=== PATIENT | female | born 1970 | race Caucasian/White ===

== ENCOUNTER 2019-07-02 10:05 | Outpatient (CLI) | payer OTHER, SELFPAY ==
[2019-07-02 10:38] LABS: Basophils Absolute Auto 0.1 K/mm3 (0.0-0.1); Basophils Percent Auto 0.7 % (0.2-1.2); Eosinophils Absolute Auto 0.1 K/mm3 (0-0.3); Eosinophils Percent Auto 1.4 % (0-4.4); Hematocrit 40.6 % (37.0-47.0); Hemoglobin 14.2 g/dL (12.0-15.0); Immature Granulocyte Absolute 0.03 K/mm3 (0.00-0.031); Immature Granulocyte Percent A 0.4 % (0-0.5); Lymphocytes Absolute Auto 2.01 K/mm3 (0.9-3.2); Lymphocytes Percent Auto 23.9 % (18.3-44.2); Mean Corpuscular Hemoglobin 33.3 pg (26-34); Mean Corpuscular Volume 95.3 fl (80-100); Mean Platelet Volume 8.3 fl (7.4-10.4); Monocytes Absolute Auto 0.5 K/mm3 (0.1-0.6); Monocytes Percent Auto 5.8 % (2.6-8.5); Neutrophils Absolute Auto 5.7 K/mm3 (1.3-6.7); Neutrophils Percent Auto 67.8 % (45.5-73.1); Platelet Count Result 270 k/mm3 (150-375); Red Blood Count 4.26 M/mm3 (4.2-5.4); Red Cell Distribution Width 12.4 % (11.5-14.5); White Blood Count 8.4 K/mm3 (4.5-10.0)
[2019-07-02 10:41] LABS: Alanine Aminotransferase 18 U/L (4-35); Albumin Level 4.3 g/dL (3.5-5.1); Alkaline Phosphatase 50 U/L (38-126); Aspartate Amino Transferase 27 U/L (14-36); Bilirubin,Total 0.5 mg/dL (0.2-1.3); Blood Urea Nitrogen 16 mg/dL (7-17); Calcium 8.5 mg/dL (8.4-10.2); Carbon Dioxide 25 mmol/L (22-30); Chloride 105 mmol/L (98-107); Cholesterol 214 mg/dL (0-200); Estimated Glomerular Filt Rate > 60; Glucose 84 mg/dL (65-105); HDL Direct 75 mg/dL; Sodium 134 mmol/L (137-145); Triglycerides 79 mg/dL (<150)
[2019-07-02 10:51] LABS: LDL Cholesterol Direct 110 mg/dL
== END 2019-07-02 10:06 | disposition home or self-care (01) ==
PROVIDERS: PCP Internal Medicine; Visit Provider Nurse Practitioner
DX: Z13.220 Encounter for screening for lipoid disorders (principal); Z13.29 Encounter for screening for other suspected endocrine disorder; F41.9 Anxiety disorder, unspecified
CPT/HCPCS: 36415; 80053; 80061; 84443; 85025

== ENCOUNTER 2019-10-25 08:00 | Outpatient (RCR) | payer OTHER, SELFPAY ==
--- NOTE | 2019-08-23 15:49 | PTOPEVAL ---
PHYSICAL THERAPY EVALUATION AND PLAN OF CARE 08-23-2019 The PT evaluation was completed for the diagnosis of cervical radiculopathy. Her plan of care is scheduled for 1-2 x/week for 5 weeks. Thank you for referring Yahaira Blackburn to [facility]. Please review, sign, date and return this plan of care DARNELL. I agree with and certify that the following plan of care is medically necessary. Referring Physician Date Attending Provider: Denisha Haines NP *PT Outpatient Evaluation Start: 08/23/19 14:39 Document 08/23/19 14:30 JOSE LUIS (Rec: 08/23/19 15:49 JOSE LUIS [id number]) Outpatient Past Medical History Past Medical History Source of Past Medical History Patient Neurological History Hx Other Neurological Disorders Yes: vertigo with positional changes:supine/sit Cardiovascular History Hx Cardiac Disorders No Significant History Respiratory History Hx Other Respiratory Disorders Yes: smoker Gastrointestinal History Hx Gastrointestinal Disorders No Significant History Genitourinary History Hx Genitourinary Disorders No Significant History Musculoskeletal History Hx Other Musculoskeletal Disorders Yes: neck pain; shoulder blade pain- chiropractor care Hematological History Hx Hematological Disorders No Significant History Endocrine History Hx Endocrine Disorders No Significant History HEENT History Hx Other HEENT Disorders Yes: wear glasses- all time, except at computer work Psychosocial History Hx Anxiety Yes: taking meds Evaluation Information Problem Diagnosis cervical pain with radiculopathy Onset Apr 20 2019 Subjective Information gradual increase in pain neck Query Text:As Reported By Patient/ and L UE; saw chiropractor for Family L shoulder blade pain; arm going numb with sleeping- in prone with arm out to the side ; when changed sleep position , less; started doing more fitness exercises, taking it slow and gradual increase in exercises. 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
--- NOTE | 2019-09-26 08:45 | PTOPEVAL ---
PHYSICAL THERAPY RE-EVALUATION AND UPDATED PLAN OF CARE 09-26-2019 Ms. Blackburn has received 6 PT sessions, from August 22 to today, for the diagnosis of cervical radiculopathy. Compared to the initial evaluation: she has improved with: less pain rating at the high rating; sleep tolerance; strength of shoulder-scapular complex; cervical rotation to the L no longer causes pain; posture and awareness of positioning; She continues to have muscle spasms, pain and radicular symptoms into her L fingers with cervical extension and increased activity. Yahaira is independent with her home exercise program and is observing good posture with her exercises. Continued therapy 1x/week for 4 weeks, to advance HEP and progress her treatments, to decrease pain and increase strength. Thank you for referring Yahaira Blackburn to [facility]Note 3]. Please review, sign, date and return this plan of care DARNELL. I agree with and certify that the following plan of care is medically necessary. 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 Pain Assessment Timing of Pain Assessment Timing of Pain Assessment Assessment Pain Scale Pain Scale Used Numeric (1 - 10) Self Report Pain Assessment Bilateral Neck Reported Pain Level 0 Radicular Pain Location tingling in index and 3rd finger~20x/day;no neck pain now;mild pain in neck Pain Frequency Intermittent Other Pain Description uncomfortable in arm, no longer as much pain Lowest Pain Intensity 0 Greatest Pain Intensity 4 Other Pain Aggravating Factors position, positional vertigo; sinus issues now;awaken from sleep 1x/night Pain Relief Interventions Used By Inactivity/Rest Patient Other Alleviating Interventions good upright sitting posture; change position; shoulder circles Additional Pain Comments Electrical stim & heat end session, sitting x 15 min; leukotape applied Pain Score Pain Score 0: Self Report Cervical and Lumbar ROM Cervical ROM Cervical ROM Comments
--- NOTE | 2019-10-25 08:39 | PTOPEVAL ---
PHYSICAL THERAPY DISCHARGE 10-25-2019 Ms. Blackburn has received 10 PT sessions, from August 22 to today, for the diagnosis of cervical radiculopathy. 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 Yahaira is independent with her home exercises and has a good awareness of her posture and positioning with exercises and at the work computer. The goals were partially achieved: did not achieve commission clerk strength, radicular pain into L forearm at worst and 5# use for shoulder exercise goals; but did improve with all of them. She will be discharged from PT at this time. She will continue with her Home Exercises and monitor her radicular pain. Thank you for referring Yahaira Blackburn to [facility]. Please review, sign, date and return this discharge DARNELL. I agree with and certify that the following plan of care is medically necessary. Referring Physician Date Attending Provider: Denisha Haines NP *PT Outpatient Re- Evaluation Document 10/25/19 08:10 JOSE LUIS (Rec: 10/25/19 08:39 JOSE LUIS [id number]) Subjective: Yahaira reports: feeling much better, able to work out with video, modify activities to not cause arm pain, able to sleep without awaken due to pain; cannot lie on side very long; feels like she is ready for discharge from PT, to continue home exercises and get an exercise ball. Pain Assessment Timing of Pain Assessment Timing of Pain Assessment Assessment Pain Scale Pain Scale Used Numeric (1 - 10) Self Report Pain Assessment Bilateral Neck Reported Pain Level 0 Radicular Pain Location numb L arm 3x during day, for less than 1 minute duration- 3 -4-5 L fingers Pain Frequency Chronic Lowest Pain Intensity 0 Greatest Pain Intensity 1 Other Pain Aggravating Factors sit at computer Other Alleviating Interventions no pain meds; Additional Pain Comments arms feel weak; tired most of the time; was able to worked out few times l Pain Score Pain Score 0: Self Report Additional Pain Score Comments electrical stim and heat at end of session, 15 min in supine, decrease muscle spasms over upper traps; discussed home TENS unit for pain c
== END 2019-11-01 13:45 | disposition home or self-care (01) ==
LOC: ANHPT 08:00
PROVIDERS: PCP Internal Medicine; Visit Provider Nurse Practitioner
DX: M54.12 Radiculopathy, cervical region (principal)
CPT/HCPCS: 97012; 97014; 97110; 97140; 97161; G0283

== ENCOUNTER 2021-03-22 07:30 | Outpatient (CLI) | payer OTHER, SELFPAY ==
[2021-03-22 08:12] LABS: Basophils Absolute Auto 0.1 K/mm3 (0.0-0.1); Basophils Percent Auto 0.8 % (0.2-1.2); Eosinophils Absolute Auto 0.2 K/mm3 (0-0.3); Hematocrit 41.8 % (37.0-47.0); Hemoglobin 14.6 g/dL (12.0-15.0); Immature Granulocyte Absolute 0.04 K/mm3 (0.00-0.031); Immature Granulocyte Percent A 0.5 % (0-0.5); Lymphocytes Absolute Auto 1.78 K/mm3 (0.9-3.2); Lymphocytes Percent Auto 20.5 % (18.3-44.2); Mean Corpuscular HGB Conc 34.9 g/dl (32-36); Mean Corpuscular Hemoglobin 34.3 pg (26-34); Mean Corpuscular Volume 98.1 fl (80-100); Mean Platelet Volume 8.5 fl (7.4-10.4); Monocytes Absolute Auto 0.5 K/mm3 (0.1-0.6); Neutrophils Absolute Auto 6.1 K/mm3 (1.3-6.7); Neutrophils Percent Auto 70.2 % (45.5-73.1); Platelet Count Result 229 k/mm3 (150-375); Red Blood Count 4.26 M/mm3 (4.2-5.4); Red Cell Distribution Width 12.2 % (11.5-14.5); White Blood Count 8.7 K/mm3 (4.5-10.0)
[2021-03-22 08:37] LABS: Alanine Aminotransferase 16 U/L (4-35); Albumin Level 4.2 g/dL (3.5-5.1); Alkaline Phosphatase 50 U/L (38-126); Anion Gap 4 mmol/L (8-16); Aspartate Amino Transferase 23 U/L (14-36); Bilirubin,Total 0.3 mg/dL (0.2-1.3); Blood Urea Nitrogen 14 mg/dL (7-17); Calcium 8.7 mg/dL (8.4-10.2); Carbon Dioxide 23 mmol/L (22-30); Chloride 107 mmol/L (98-107); Cholesterol 209 mg/dL (0-200); Estimated Glomerular Filt Rate > 60; Glucose 100 mg/dL (65-110); HDL Direct 85 mg/dL; Potassium 4.1 mmol/L (3.4-5.0); Sodium 134 mmol/L (137-145); Triglycerides 94 mg/dL (<150)
[2021-03-22 08:48] LABS: LDL Cholesterol Direct 99 mg/dL
== END 2021-03-22 07:31 | disposition home or self-care (01) ==
PROVIDERS: PCP Internal Medicine; Visit Provider Nurse Practitioner
DX: Z13.228 Encounter for screening for other metabolic disorders (principal); Z13.220 Encounter for screening for lipoid disorders
CPT/HCPCS: 36415; 80053; 80061; 85025

== ENCOUNTER 2021-05-25 00:23 | Emergency (ER) | payer OTHER, SELFPAY ==
--- NOTE | ~2021-05-25 | XR_ITS ---
XR ankle LT min 3V 05/25/2021 01:33 Indication: Left ankle pain Procedure: 4 views left ankle Comparison: No prior studies for comparison. Findings: There is a nondisplaced oblique distal fibular diametaphyseal fracture. No significant angu lation. Ankle mortise intact. Mild lateral soft tissue swelling. No foreign bodies. Talar dome is nor mal. Impression: 1: Nondisplaced oblique distal fibular diametaphyseal fracture. Reviewed, dictated and finalized at location A. 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
[2021-05-25 00:27] VITALS: PULSE 78; RESP 16; TEMP 36.8; O2SAT 98
--- NOTE | 2021-05-25 01:21 | ED.GENADULT ---
HPI - General Adult General Chief complaint: Extremity Injury, Lower Stated complaint: FALL, ANKLE INJURY Time Seen by Provider: 05/25/21 00:40 Source: patient and EMS History of Present Illness HPI narrative: 51-year-old female presenting to the emergency department for evaluation of left ankle pain after having a ground-level fall at home. Patient does admit to drinking alcohol. Patient states she was walking out to her car to get up with her cigarettes when she rolled her ankle. Patient does report left ankle pain that is worse with ambulation. Patient denies striking head denies any loss of consciousness. Related Data Home Medications Medication Instructions Recorded Confirmed levonorgestrel 20 mcg/24 hours (7 1 device I-UTERINE ONCE 03/14/19 03/28/21 yrs) 52 mg intrauterine device Allergies Allergy/AdvReac Type Severity Reaction Status Date / Time No Known Allergies Allergy Verified 02/23/20 08:41 Review of Systems Review of Systems: CONSTITUTIONAL: Denies fever, chills, or sweats. EYES: Denies visual changes, redness, or discharge. ENT: Denies rhinorrhea, congestion, sore throat, or otalgia. CARDIOVASCULAR: Denies chest pain, palpitations, or edema. RESPIRATORY: Denies cough or dyspnea. GASTROINTESTINAL: Denies abdominal pain, nausea, vomiting, or diarrhea. GENITOURINARY: Denies dysuria or hematuria. SKIN: Denies rash or itching. MUSCULOSKELETAL: Left ankle pain NEUROLOGIC: Denies headache, numbness, or weakness. PSYCHIATRIC: Denies anxiety or depression. All systems reviewed & are unremarkable except as noted in HPI and below PMFSH Past Medical History Medical History (Updated 05/25/21 @ 01:40 by Kenneth Anaya MD) history History of candidal vulvovaginitis Tobacco use Vertigo Surgical History Surgical History History of conization of cervix Family History Family History Mother Breast cancer Social History Social History Smoking packs per day: 1 Smoking cigarettes per day: 20.0 Smoking status: Current every day smoker Alcohol intake: current Alcohol use details: once a week Exam Narrative: APPEARANCE: Well appearing, no pain, no distress, well-nourished. HEAD: normocephalic, atraumatic. RESPIRATORY: Airway patent, respirations nonlabored. Clear to auscultation bilaterally, no rales, rhonchi, wheezing. CARDIOVASCULAR: Regular rate and rhythm without murmurs rubs or gallops. ABDOMINAL: Soft, nontender, nondistended, normal bowel sounds MUSCULOSKELETAL: Tenderness to distal left lower leg. Neurovascular intact. SKIN: Warm, dry. Normal Color Course Course Emergency Course: Patient was updated on the results of her x-ray. Patient was splinted. Patient was updated on importance of close follow-up with orthopedics. All questions and concerns were addressed. Patient was able to ambulate on crutches prior to discharge. Patient was in no distress time of discharge from the restaurant. Vital Signs Vital signs: Vital Signs Temperature 98.3 F 05/25/21 00:27 Pulse Rate 78 05/25/21 00:27 Respiratory Rate 16 05/25/21 00:27 Pulse Oximetry 98 05/25/21 00:27 Temperature 97.9 F 05/25/21 05:34 Pulse Rate 77 05/25/21 05:34 Respiratory Rate 14 05/25/21 05:34 Blood Pressure 124/78 05/25/21 05:34 Pulse Oximetry 100 05/25/21 05:34 Medical Decision Making Vital Signs Vital Signs: Vital Signs Temperature 98.3 F 05/25/21 00:27 Pulse Rate 78 05/25/21 00:27 Respiratory Rate 16 05/25/21 00:27 Pulse Oximetry 98 05/25/21 00:27 Temperature 97.9 F 05/25/21 05:34 Pulse Rate 77 05/25/21 05:34 Respiratory Rate 14 05/25/21 05:34 Blood Pressure 124/78 05/25/21 05:34 Pulse Oximetry 100 05/25/21 05:34 Imaging Data Radiologist's impression: Nadia
--- NOTE | 2021-05-25 02:37 | PC.NURSE ---
Pt yelling, states that she wants to stay in ED longer and sleep, states that she cannot find a ride back home but then states that she will pay a taxi. RN informs pt that she will be discharged after all ED interventions are completed, pt only yells ans states You're so rude, why do you want to kick me out? I want to sleep!
--- NOTE | 2021-05-25 05:33 | PC.NURSE ---
Pt given time to sleep and call to arrange transportation, pt was observed by this RN to use crutches properly, after crutch-training pt called [employer].
[2021-05-25 05:34] VITALS: BP 124/78; PULSE 77; RESP 14; TEMP 36.6; O2SAT 100
--- NOTE | 2021-06-05 14:16 | PC.NURSE ---
LATE ENTRY This note is being entered to document information to the patient's record. The following information was omitted on [05/25/2021], by [Angelita KIRKPATRICK]. Left lower leg short Posterior splint applied.
== END 2021-05-25 05:45 | disposition home or self-care (01) ==
PROVIDERS: Emergency Provider Emergency Medicine; PCP Internal Medicine
DX: S89.392A Other physeal fracture of lower end of left fibula, initial encounter for closed fracture (principal); F17.210 Nicotine dependence, cigarettes, uncomplicated; W18.39XA Other fall on same level, initial encounter; Y93.01 Activity, walking, marching and hiking
CPT/HCPCS: 29515; 73610; 99284

== ENCOUNTER 2021-09-10 15:15 | Outpatient (RCR) | payer OTHER, SELFPAY ==
--- NOTE | 2021-07-16 16:55 | PTOPEVAL ---
PHYSICAL THERAPY INITIAL EVALUATION. Thank you for referring Yahaira Blackburn to [facility].? The patient is scheduled to be seen for therapy? 2x/week for 4 weeks. Please review, sign, date and return this plan of care DARNELL. I agree with and certify that the following plan of care is medically necessary. Referring Physician Date Attending Provider: Davide Kang MD *PT Outpatient Evaluation Start: 07/16/21 Evaluation Information Diagnosis Nondisplaced lateral malleolus fracture Onset 05/24/21 Subjective Information Pt states on 05/24/21 she fell Query Text:As Reported By Patient/ and broke her fibula. She Family states she wore a splint for 2 weeks, after that she wore a brace and used crutches. She states she went back to work about 2 weeks ago. She states she is still battling swelling. She uses a knee scooter at work. She self weened from the crutches over the weekend. She reports she is very fearful of hurting her ankle again. Pain Assessment Left Ankle(s) Reported Pain Level 0 Pain Description Tender on Palpation,Tightness, With Movement Pain Frequency Acute,Intermittent Lowest Pain Intensity 0 Greatest Pain Intensity 5 Pain Aggravating Factors Stair Climbing,Walking,Weight Bearing/Standing Interventions Used Interventions Used By Clinicians Education,Exercise,Rest Pain Relief Interventions Used By Inactivity/Rest Patient Lower Extremity Range of Motion Left Ankle Dorsiflexion With Knee Extension -7 active Ankle Dorsiflexion With Knee Extension 5 passive Ankle Dorsiflexion With Knee Flexed 6 active Ankle Plantarflexion Range of Motion - 70 active Ankle Eversion Range of Motion - Passive 9 passive Ankle Inversion Range of Motion - 20 passive Ankle Range of Motion Comments R ankle 6 deg of dorsiflexion 70 deg of plantarflexion 15 deg of inversion 35 deg of eversion Lower Extremity Muscle Strength Testing Gross Lower Extremity Strength R SLS: 15s L SLS: 12s Left Ankle Dorsiflexion Strength 4- Good - Ankle Plantarflexion Strength 4- Good - Ankle Eversion Strength 4- Good - Ankle Inversion Strength 4- Good - Muscle Length Testing Gastro
--- NOTE | 2021-08-13 13:05 | PTOPEVAL ---
PHYSICAL THERAPY PROGRESS REPORT. Thank you for referring Yahaira Blackburn to [facility].? The patient is scheduled to be seen for therapy? 1x/week for 4 weeks. Please review, sign, date and return this plan of care DARNELL. I agree with and certify that the following plan of care is medically necessary. Referring Physician Date Attending Provider: Davide Kang MD Evaluation Information Diagnosis Nondisplaced lateral malleolus fracture Onset 05/24/21 Subjective Information Pt states overall she is doing Query Text:As Reported By Patient/ good. Pt states she has a Family spot on her posterior heel that makes it feel like her ankle is collapsing , this makes her fearful of falling. She states she still has some aches, pains, and tightness but she is walking much better . Pt states the period of stiffness after inactivity has shorten drastically. Pain Assessment Left Ankle(s) Reported Pain Level 1 Greatest Pain Intensity 5 Lower Extremity Range of Motion Ankle/Foot Range of Motion Left Ankle Dorsiflexion With Knee Extension -2 active Ankle Dorsiflexion With Knee Extension 9 passive Ankle Dorsiflexion With Knee Flexed 12 active Ankle Plantarflexion Range of Motion - 70 active Ankle Eversion Range of Motion - Passive 18 passive Ankle Inversion Range of Motion - 27 passive Ankle Range of Motion Comments R ankle 6 deg of dorsiflexion 70 deg of plantarflexion 15 deg of inversion 35 deg of eversion Lower Extremity Muscle Strength Testing Gross Lower Extremity Strength R SLS: 30s - stopped at 30 sec L SLS: 30s - stopped at 30 sec unable to perform single leg heel raise - able to lower eccentrically on L LE Ankle Strength Left Ankle Dorsiflexion Strength 4 Good Ankle Plantarflexion Strength 4 Good Ankle Eversion Strength 4 Good Ankle Inversion Strength 4 Good Gait Assessment Gait Pattern Antalgic Gait Other Gait Observations No notable deviations in the first min of walk, towards the end of the 2 mins pt stated to demonstrate a mild antalgic gait. Equal step length, stride length, and normal gait speed. 2 Minute Walk
--- NOTE | 2021-09-10 15:48 | PTOPEVAL ---
PHYSICAL THERAPY PROGRESS REPORT AND DISCHARGE SUMMARY. Thank you for referring Yahaira Blackburn to [facility].? The patient is to be d/c'ed from therapy services at this time. Please review, sign, date and return this plan of care DARNELL. I agree with and certify that the following plan of care is medically necessary. Referring Physician Date Attending Provider: Davide Kang MD Evaluation Information Diagnosis Nondisplaced lateral malleolus fracture Onset 05/24/21 Subjective Information Pt states she is doing great. Query Text:As Reported By Patient/ Last week she went on vacation Family and was able to walk on sand barefoot, get on and off a boat, dance, and walk more than usual without limitations , she did have increased soreness over the next couple of days. Pain Assessment Left Ankle(s) Reported Pain Level 1 Lower Extremity Range of Motion Ankle/Foot Range of Motion Left Ankle Dorsiflexion With Knee Extension 8 active Ankle Dorsiflexion With Knee Extension 13 passive Ankle Dorsiflexion With Knee Flexed 12 active Ankle Plantarflexion Range of Motion - 70 active Ankle Eversion Range of Motion - Passive 18 Ankle Inversion Range of Motion -passive 40 Ankle Range of Motion Comments R ankle 6 deg of dorsiflexion 70 deg of plantarflexion 35 deg of inversion 15 deg of eversion Lower Extremity Muscle Strength Testing Gross Lower Extremity Strength R SLS: 30s - stopped at 30 sec L SLS: 30s - stopped at 30 sec Able to perform 8 single leg heel raises on the R before a loss in height was detected, able to perform 2 on the L before loss of height Ankle Strength Left Ankle Dorsiflexion Strength 5 Normal Ankle Plantarflexion Strength 4+ Good + Ankle Eversion Strength 5 Normal Ankle Inversion Strength 4+ Good + Gait Assessment Ambulation Assistive Devices None Other Gait Observations No notable deviations initially, as time elapsed, minor decreased eccentric control on the L. Equal step length, stride length, and normal gait speed. 2 Minute Walk Total Distance Walked (feet) 575 2 Minute Walk Gait Speed Score (feet/ 4.79 second)
== END 2021-09-11 10:20 | disposition home or self-care (01) ==
LOC: ANHPT 15:15
PROVIDERS: PCP Internal Medicine; Visit Provider Orthopaedic Surgery
DX: S82.65XA Nondisplaced fracture of lateral malleolus of left fibula, initial encounter for closed fracture (principal)
CPT/HCPCS: 97022; 97110; 97112; 97140; 97161; 97530

== ENCOUNTER 2022-04-16 09:08 | Outpatient (CLI) | payer OTHER, SELFPAY ==
[2022-04-16 18:28] LABS: Alanine Aminotransferase 41 U/L (6-35); Albumin Level 4.5 g/dL (3.5-5.1); Alkaline Phosphatase 57 U/L (38-126); Anion Gap 6 mmol/L (8-16); Aspartate Amino Transferase 44 U/L (14-36); Bilirubin,Total 0.4 mg/dL (0.2-1.3); Blood Urea Nitrogen 20 mg/dL (7-17); Carbon Dioxide 28 mmol/L (22-30); Chloride 103 mmol/L (98-107); Cholesterol 269 mg/dL (0-200); Estimated Glomerular Filt Rate > 60; Glucose 83 mg/dL (65-110); HDL Direct 79 mg/dL; Potassium 4.5 mmol/L (3.4-5.0); Sodium 137 mmol/L (137-145); Triglycerides 87 mg/dL (<150)
[2022-04-16 18:39] LABS: LDL Cholesterol Direct 136 mg/dL
[2022-04-16 19:39] LABS: Basophils Absolute Auto 0.1 K/mm3 (0.0-0.1); Eosinophils Absolute Auto 0.1 K/mm3 (0-0.3); Eosinophils Percent Auto 1.8 % (0-4.4); Hematocrit 44.1 % (37.0-47.0); Immature Granulocyte Absolute 0.01 K/mm3 (0.00-0.031); Immature Granulocyte Percent A 0.2 % (0-0.5); Lymphocytes Absolute Auto 1.99 K/mm3 (0.9-3.2); Lymphocytes Percent Auto 32.3 % (18.3-44.2); Mean Corpuscular Hemoglobin 33.8 pg (26-34); Mean Corpuscular Volume 99.3 fl (80-100); Mean Platelet Volume 8.9 fl (7.4-10.4); Monocytes Absolute Auto 0.5 K/mm3 (0.1-0.6); Monocytes Percent Auto 7.3 % (2.6-8.5); Neutrophils Absolute Auto 3.6 K/mm3 (1.3-6.7); Neutrophils Percent Auto 57.4 % (45.5-73.1); Platelet Count Result 298 k/mm3 (150-375); Red Blood Count 4.44 M/mm3 (4.2-5.4); Red Cell Distribution Width 13.1 % (11.5-14.5); White Blood Count 6.2 K/mm3 (4.5-10.0)
== END 2022-04-16 09:09 | disposition home or self-care (01) ==
LOC: ANHGOSHLAB 09:09
PROVIDERS: PCP Internal Medicine; Visit Provider Nurse Practitioner
DX: F41.9 Anxiety disorder, unspecified (principal); Z13.220 Encounter for screening for lipoid disorders; Z13.29 Encounter for screening for other suspected endocrine disorder
CPT/HCPCS: 36415; 80053; 80061; 84443; 85025

== ENCOUNTER 2022-04-26 11:03 | Outpatient (CLI) | payer OTHER, SELFPAY ==
--- NOTE | ~2022-04-26 | MM_ITS ---
EXAMINATION: MM screening [place] BI w juana HISTORY: Screening mammogram TECHNIQUE: Craniocaudal and mediolateral oblique 3-D tomosynthesis images were obtained and synthetic 2-D images were generated. CAD analysis was submitted and interpreted. COMPARISON: 08/01/2017, 05/13/2014 bilateral screening mammogram examinations BREAST PARENCHYMAL COMPOSITION: The breasts are heterogeneously dense, which may obscure small masses . FINDINGS: There is no evidence of suspicious mass, calcification, or architectural distortion to sugg est malignancy in either breast. There has been no suspicious interval change. IMPRESSION: 1. No mammographic evidence of malignancy. 2. Recommend routine screening mammography in one year. BI-RADS Category 1: Negative , 05/09/2014 bilateral screening mammogram examinations Reviewed, dictated and finalized at location A. COMMUNICATIONS SUPPORT
== END 2022-04-26 11:04 | disposition home or self-care (01) ==
LOC: ANHIMG 11:04
PROVIDERS: PCP Internal Medicine; Visit Provider Nurse Practitioner
DX: Z12.31 Encounter for screening mammogram for malignant neoplasm of breast (principal)
CPT/HCPCS: 77063; 77067

== ENCOUNTER 2024-01-21 09:27 | Outpatient (CLI) | payer OTHER, SELFPAY ==
[2024-01-21 18:55] LABS: Basophils Absolute Auto 0.1 K/mm3 (0.0-0.1); Basophils Percent Auto 1.5 % (0.2-1.2); Eosinophils Absolute Auto 0.2 K/mm3 (0-0.3); Eosinophils Percent Auto 3.2 % (0-4.4); Hematocrit 41.4 % (37.0-47.0); Hemoglobin 14.3 g/dL (12.0-15.0); Immature Granulocyte Absolute 0.01 K/mm3 (0.00-0.031); Immature Granulocyte Percent A 0.2 % (0-0.5); Lymphocytes Absolute Auto 2.04 K/mm3 (0.9-3.2); Lymphocytes Percent Auto 31.5 % (18.3-44.2); Mean Corpuscular HGB Conc 34.5 g/dl (32-36); Mean Corpuscular Hemoglobin 33.3 pg (26-34); Mean Corpuscular Volume 96.3 fl (80-100); Monocytes Absolute Auto 0.5 K/mm3 (0.1-0.6); Monocytes Percent Auto 7.6 % (2.6-8.5); Neutrophils Absolute Auto 3.6 K/mm3 (1.3-6.7); Platelet Count Result 292 k/mm3 (150-375); Red Cell Distribution Width 12.6 % (11.5-14.5); White Blood Count 6.5 K/mm3 (4.5-10.0)
[2024-01-21 20:35] LABS: Alanine Aminotransferase 25 U/L (6-35); Albumin Level 4.7 g/dL (3.5-5.1); Alkaline Phosphatase 67 U/L (38-126); Anion Gap 7 mmol/L (4-12); Aspartate Amino Transferase 38 U/L (14-36); Bilirubin,Total 0.5 mg/dL (0.2-1.3); Blood Urea Nitrogen 20 mg/dL (7-17); Calcium 9.4 mg/dL (8.4-10.2); Carbon Dioxide 28 mmol/L (22-30); Chloride 103 mmol/L (98-107); Cholesterol 252 mg/dL (0-200); Estimated Glomerular Filt Rate > 60; Glucose 88 mg/dL (65-110); HDL Direct 104 mg/dL; Potassium 4.8 mmol/L (3.4-5.0); Sodium 138 mmol/L (137-145); Triglycerides 84 mg/dL (<150)
[2024-01-21 20:46] LABS: LDL Cholesterol Direct 121 mg/dL
[2024-01-21 21:00] LABS: Vitamin D 25 Hydroxy 33.2 ng/mL
[2024-01-21 21:40] LABS: Folic Acid 11.8 ng/mL (2.76->20)
== END 2024-01-21 09:28 | disposition home or self-care (01) ==
LOC: ANHGOSHLAB 09:28
PROVIDERS: PCP Internal Medicine; Visit Provider Nurse Practitioner
DX: E78.5 Hyperlipidemia, unspecified (principal); E55.9 Vitamin D deficiency, unspecified; R53.83 Other fatigue; Z13.29 Encounter for screening for other suspected endocrine disorder
CPT/HCPCS: 36415; 80053; 80061; 82306; 82607; 82746; 84443; 85025

== ENCOUNTER 2024-06-09 08:55 | Outpatient (CLI) | payer OTHER, SELFPAY ==
--- NOTE | ~2024-06-09 | MM_ITS ---
EXAMINATION: MM screening [place] BI w juana HISTORY: Screening TECHNIQUE: Craniocaudal and mediolateral oblique 3-D tomosynthesis images were obtained and synthetic 2-D images were generated. CAD analysis was submitted and interpreted. COMPARISON: Comparison to multiple prior studies sequentially, with oldest reviewed study dated 08/01. BREAST PARENCHYMAL COMPOSITION: Dense: The breasts are heterogeneously dense, which may obscure small masses FINDINGS: There is no evidence of suspicious mass, calcification, or architectural distortion to sugg est malignancy in either breast. There has been no suspicious interval change. IMPRESSION: 1. No mammographic evidence of malignancy. 2. Recommend routine screening mammography in one year. 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
--- OUTSIDE RECORDS SUMMARY | 2024-06-09 09:06 | XMS_ITS | Encounter Summary ---
Author Organization [facility] Address 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 Name Role Phone Unavailable Primary Care Provider Unavailabl e Encounter Details Date Type Department Care Team (Late st Contact Info) Description 06/07/2024 External Device Data [facility] ABSTRACTION Provider, Abstract NO ADDRESS ON FILE Social History Tobacco Use Types Packs/Day Years Used Date Smoking Tobacco: Former Cigarettes Q uit: 12/11/2023 Smokeless Tobacco: Never Alcohol Use Standard Drinks/Week Comments Yes 0 (1 standard drink = 0.6 oz pur e alcohol) 1 bottleof wine per week Comments No Sex and Gender Information Value Date Recorded Sex Assigned at Not on file Legal Sex Female 11:04 PM CDT Gender Identity Not on file Sexual Orientation Not on file documented as of this encounter Plan of Treatment Not on file documented as of this encounter Visit Diagnoses Not on filedocumented in this encounter
--- OUTSIDE RECORDS SUMMARY | 2024-06-09 09:06 | XMS_ITS | Clinical Summary ---
Author Organization [facility] Address [address] [place] [address] Care Team Providers Care Support Manager Name Role Phone Unavailable Primary Care Provider Unavailabl e Allergies No known active allergies Medications ALPRAZolam (XANAX) 0.25 mg tablet Take 0.25 mg by mouth. 3 Active levonorgestreL (MIRENA) 21 mcg/24 hours (8 yrs) 52 mg IUD 1 Each by Intrauterine route. Active conjugated estrogens (Premarin) 0.625 mg/gram vaginal creamIndication s:Perimenopausa l vasomotor symptoms Insert 0.5 Grams vaginally daily at bedtime. 30 Gram 12 4 Active tirzepatide, weight loss, (Zepbound) 5 mg/0.5 mL Pen Injector Inject by subcutaneous injection. Active Active Problems No known active problems Encounters Date Type Department Care Team Description 06/07/2024 External Device Data STL ABSTRACTION Provider, Abstract 05/11/2024 External Device Data ST[facility] ABSTRACTION Provider, Abstract 05/10/2024 External Device Data [facility] ABSTRACTION Provider, Abstract 04/26/2024 External Device Data [facility] ABSTRACTION Provider, Abstract 04/11/2024 2:10 PM MICA MINER Procedure visit [facility] SH[facility] - [facility] [place] [address] [facility] [address] [id number] Annelise Lucio DO Negative test (Primary Dx); Menopausal symptom from Last 3 Months Immunizations Immunization Administration Dates Next Due INFLUENZA VACCINE QUADRIVALENT 6 MOS UP PF IM INFLUENZA VACCINE TRIVALENT MDCK, (6 MOS UP), 0.5ML (PF), IM 01/25/2024 Social History Tobacco Use Types Packs/Day Years Used Date Smoking Tobacco: Former Cigarettes Q uit: 12/11/2023 Smokeless Tobacco: Never Tobacco Cessation:Counseling Given: Not Answered Alcohol Use Standard Drinks/Week Comments Yes 0 (1 standard drink = 0.6 oz pur e alcohol) 1 bottleof wine per week Comments No Sex and Gender Information Value Date Recorded Sex Assigned at Not on file Legal Sex Female 11:04 PM CDT Gender Identity Not on file Sexual Orientation Not on file Last Filed Vital Signs Vital Sign Reading Time Taken Comments Blood Pressure 112/74 04/11/2024 2:14 PM MICA MINER Pulse 84 04/11/2024 2:14 PM MICA MINER Temperature 36.1 C (97 F) 04/11/2024 2:14 PM MICA MINER Respiratory Rate - - Oxygen Saturation 98% 04/11/2024 2:14 PM MICA MINER Inhaled Oxygen Concentration - - Weight 60.8 kg (134 lb) 04/11/2024 2:14 PM MICA MINER Height 154.9 cm (5' 1 ) 04/11/2024 2:14 PM MICA MINER Body Mass Index 25.32 04/11/2024 2:14 PM MICA MINER Plan of Treatment Health Maintenance Due Date Last Done Comments DTAP/TDAP/TD VACCINES (1 - Tdap) 1989 HEPATITIS B VACCINES (1 of 3 - 19+ 3-dose series) 1989 BREAST CANCER SCREENING 2010 COLORECTAL SCREENING 2015 Colorectal Cancer Screening 2015 FIT-DNA Q 3 years 2015 FIT/FOBT Q 1 year 2015 Flex Sig/CT Colonography Q 5 years 2015 ZOSTER VACCINE (1 of 2) 2020 Preventative Visit- Commercial 04/20/2024 05/27/2023 CERVICAL CANCER SCREENING 05/27/2026 05/27/2023 Pre-Diabetes and Diabetes Screening 06/19/202606/19 INFLUENZA VACCINE Completed 01/25/2024, 01/19/2023 Procedures Procedure Name Priority Date/Time Associated Diagnosis Comments HEMOGLOBIN A1C Routine 06/20/2023 11:14 AM MICA MINER Menopause CERV/VAG CYTO AGE BASED SCREEN PAP Routine 05/27/2023 4:52 PM MICA MINER Well woman exam with routine gynecological exam Screening for cervical cancer from Last 3 Months or Most Recently Relevant to Health Maintenance Results * HEMOGLOBIN A1C (06/20/2023 11:14 AM MICA MINER) HEMOGLOBIN A1C 5.0 <5.7 % of total Hgb [facility] Comment: For the purpose of screening for the presence of diabetes: <5.7% Consistent with the absence of diabetes 5.7-6.4% Consistent with increased risk for diabetes (prediabetes) > or =6.5% Consistent with diabetes This assay result is consistent with a decreased risk of diabetes. Currently, no consensus exists regarding use of hemoglobin A1c for diagnosis of diabetes in children. According to [place] Diabetes Association (ADA) guidelines, hemoglobin A1c <7.0% represents optimal control in non- diabetic patients. Different metrics may apply to specific patient populations. Standards of Medical Care in Diabetes(ADA). ESTIMATED AVERAGE GLUCOSE (MG/DL) 97 mg/dL [facility] ESTIMATED AVERAGE GLUCOSE (MMOL/L) 5.4 mmol/L [facility] Comment: This test was performed on the Blackman Drop Machine Operator [id number] platform. Please be advised that [facility] will move hemoglobin A1c testing to the Myron platform soon. In general, direct comparison of the results from different platforms is not recommended. FASTING:NO FASTING: NO [address] [place] [address] Blood 06/20/2023 11:1 4 AM MICA MINER 06/20/2023 11:15 AM MICA MINER us Annelise Lucio DO CHEMISTRY ORDERABLES Final Resul t [facility] [phone] [facility] [address] [place] [address] * CERV/VAG CYTO AGE BASED SCREEN PAP (05/27/2023 4:52 PM MICA MINER) COMMENT (PAP): [facility] [place] Comment: This order for age-based cervical cancer and STI screening follows ACOG guidelines(PB 168, 140, CQI688). See individual assays for performing site location. CLINICAL INFORMATION [facility] [place] Comment:None given LAST MENSTRUAL PERIOD [facility] [place] Comment:NONE GIVEN PREV PAP: [facility] [place] Comment:NONE GIVEN PREV BX: [facility] [place] Comment:NONE GIVEN SOURCE [facility] [place] Comment:Endocervix ADEQUACY: [facility] [place] Comment: Satisfactory for evaluation. Endocervical/transformation zone component present. Age and/or menstrual status not provided PAP INTERP [facility] [place] Comment: Cytology Results: Negative for intraepithelial lesion or malignancy. COMMENT (PAP TEST) [facility] [place] Comment: This Pap test has been evaluated with computer assisted technology. JACKSCREW WORKER: Walker Marrero- [facility] Comment: JASKARAN CT(ASCP) CT screening location: [place] [address] [place] [address] EXPLANATORY NOTE [facility] [place] Comment: EXPLANATORY NOTE: The Pap is a screening test for cervical cancer. It is not a diagnostic test and is subject to false negative and false positive results. It is most reliable when a satisfactory sample, regularly obtained, is submitted with relevant clinical findings and history, and when the Pap result is evaluated along with historic and current clinical information. HPV E6/E7 Not Detected Not Detected [facility] [place] Comment: Methodology: Pole Incisor Operator-Mediated Amplification This assay detects E6/E7 viral messenger RNA (mRNA) from 14 high-risk HPV types (16,18,31,33,35,39,45,51,52,56,58,59,66,68). Cervical sources are required for HPV testing. If a vaginal source from a patient who has had a total hysterectomy with removal of cervix was submitted, please contact the testing laboratory for alternative testing options. For additional information, please refer to http://education.Profilepasser.25eight/faq/EMQ211j6 (This link if provided for information/ educational purposes only.) Test Performed at: [facility] [id number] [place] [id number] Shannen EATON Genital SWAB OF ENDOCERVIX / Unknown 05/27/2023 4:52 PM MICA MINER 05/28/2023 1:33 AM MICA MINER us Annelise Lucio DO PATHOLOGY/CYTOLOGY ORDERABLES Fi nal Result [facility] [phone] [facility] [address] [place] [id number] from Last 3 Months or Most Recently Relevant to Health Maintenance Insurance [facility] CHOICE [id number]
--- OUTSIDE RECORDS SUMMARY | 2024-06-09 09:06 | XMS_ITS | Clinical Summary ---
Author Organization [facility] [address] [place] Address [address] [place] [address] Care Team Providers Care Barbering Instructor Name Role Phone Reji Phelps DO Primary Care Provider +1- [phone] Allergies No known active allergies Medications levonorgestreL (MIRENA) IUD 1 each by intrauterine route once Active ALPRAZolam (XANAX) 0.25 mg tablet Take 1 tablet (0.25 mg total) by mouth daily as needed 3 Active benzonatate (TESSALON) 200 mg capsuleIndicati ons:Non-recurre nt acute suppurative otitis media of right ear without spontaneous rupture of tympanic membrane Take 1 capsule (200 mg total) by mouth 3 (three) times a day as needed for cough 30 capsule 3 Active Active Problems No known active problems Social History Tobacco Use Types Packs/Day Years Used Date Smoking Tobacco: Never Assessed Comments Unknown Sex and Gender Information Value Date Recorded Sex Assigned at Not on file Legal Sex Female 8:26 AM CDT Gender Identity Not on file Sexual Orientation Not on file Obstetrics History Last Filed Vital Signs Vital Sign Reading Time Taken Comments Blood Pressure 128/87 08/10/2022 10:58 AM CDT Pulse 81 08/10/2022 10:58 AM CDT Temperature 37.1 C (98.7 F) 08/10/2022 10:58 AM CDT Respiratory Rate 16 08/10/2022 10:58 AM CDT Oxygen Saturation 100% 08/10/2022 10:58 AM CDT Inhaled Oxygen Concentration - - Weight 54.4 kg (120 lb) 08/10/2022 10:58 AM CDT Height 154.9 cm (5' 1 ) 08/10/2022 10:58 AM CDT Body Mass Index 22.67 08/10/2022 10:58 AM CDT Plan of Treatment Health Maintenance Due Date Last Done Comments Breast Cancer Screening-Mammogram 1970 Cervical Cancer Screening 1970 Colon Cancer Screening-Colonoscopy 1970 Depression Screening 1970 Hepatitis C Screening 1970 DTaP/Tdap/Td Vaccine (1 - Tdap) 1981 Hepatitis B Screening 1988 Regular Well Visit/Exam 18-64 1988 Zoster Vaccine (1 of 2) 2020 Covid-19 Vaccine ( season) 2023 07/29/2021, 03/01/2021, 07/21/2020, Additional history exists Influenza Vaccine (#1) 2023 , 02/25/2018, 05/15/2017 Pneumococcal vaccine <65 Aged Out No longer eligible based on patient's age to complete this topic [place] [address] [facility] Care Teams Barbering Instructor Relationship Specialty Start Date End Date Reji Phelps DO PCP - General Internal Medicine 09/19/21
--- OUTSIDE RECORDS SUMMARY | 2024-06-09 09:06 | XMS_ITS | Referral Summary ---
Author Organization [facility] [address] Address [address] [place] [address] Care Team Providers Care Network Controller Name Role Phone Reji Phelps DO Primary Care Provider +1- [phone] Allergies No known active allergies Medications levonorgestreL [...] 08/10/2022 10:58 AM CDT Plan of Treatment Not on file Insurance [facility] CHOICE PLUS [facility] Care Teams Network Controller Relationship Specialty Start Date End Date Reji Phelps DO PCP - General Internal Medicine 09/19/21
== END 2024-06-09 08:56 | disposition home or self-care (01) ==
LOC: ANHIMG 08:56
PROVIDERS: PCP Internal Medicine; Visit Provider Nurse Practitioner
DX: Z12.31 Encounter for screening mammogram for malignant neoplasm of breast (principal)
CPT/HCPCS: 77063; 77067